=== PATIENT | male | born 1965 | race American Indian/Alaskan Native ===

== ENCOUNTER 2017-01-21 13:28 | Emergency (ER) | payer SELFPAY ==
[2017-01-21 14:25] LABS: Bilirubin,Urine NEG (Negative); Blood,Urine NEG (Negative); Ketones,Urine NEG (Negative); Leukocyte Esterase,Urine NEG (Negative); Nitrite,Urine NEG (Negative); Protein,Urine <15 mg/dL mg/dL (Negative); Urobilinogen,Urine < 2.0 mg/dL (<2.0)
[2017-01-21] MEDS ORDERED: DECADRON IM ONE (14:33)
--- NOTE | 2017-01-21 14:33 | Emergency Department Report ---
ED Back Pain/Injury HPI - General Chief Complaint: Back Pain/Injury Stated Complaint: HIP AND BACK PAIN Time Seen by Provider: 01/21/17 13:55 Source: patient Mode of arrival: Ambulatory Limitations: No Limitations - History of Present Illness MD Complaint: back pain -: Gradual Similar Symptoms Previously: Yes (a/c bp) Place: home Radiation: buttocks, right leg Severity: mild Quality: aching Consistency: intermittent (intermittent in am) Improves With: none Worsens With: movement Context: other (no new injury. no dysuria) Associated Symptoms: denies other symptoms - Related Data Previous Rx's Medication Instructions Recorded Last Taken Type Cyclobenzaprine [Flexeril] 10 mg PO TID PRN #10 tablet 01/21/17 Unknown Rx methylPREDNISolone [Medrol] 4 mg PO DAILY #1 tab.ds.pk 01/21/17 Unknown Rx Allergies Allergy/AdvReac Type Severity Reaction Status Date / Time No Known Allergies Allergy Verified 01/21/17 13:33 ED Review of Systems ROS: Stated complaint: HIP AND BACK PAIN Other details as noted in HPI Comment: All other systems reviewed and negative Constitutional: no symptoms reported, see HPI. denies: chills Eyes: as per HPI. denies: eye pain ENT: as per HPI. denies: ear pain, throat pain Respiratory: no symptoms reported, see HPI. denies: cough, orthopnea Cardiovascular: as per HPI. denies: chest pain, palpitations, dyspnea on exertion, orthopnea, edema, syncope, paroxysmal nocturnal dyspnea Endocrine: no symptoms reported, see HPI. denies: excessive sweating, flushing , intolerance to cold, intolerance to heat Gastrointestinal: as per HPI. denies: abdominal pain, nausea, vomiting, diarrhea, constipation, hematemesis, melena Genitourinary: as per HPI. denies: urgency, dysuria, frequency, hematuria, discharge, testicular pain, testicular mass Musculoskeletal: as per HPI, back pain (points to hip and high buttock). denies : joint swelling, arthralgia, myalgia Skin: as per HPI. denies: rash, lesions Neurological: as per HPI. denies: headache, weakness, numbness, paresthesias, confusion Psychiatric: as per HPI. denies: anxiety, depression Hematological/Lymphatic: as per HPI. denies: easy bleeding ED Past Medical Hx - Past Medical History Additional medical history: SICKLE CELL TRAIT - Surgical History Past Surgical History?: No - Family History Family history: no significant - Social History Smoking Status: Current Every Day Smoker Substance Use Type: Alcohol - Medications Home Medications: Home Medications Medication Instructions Recorded Confirmed Last Taken Type Cyclobenzaprine [Flexeril] 10 mg PO TID PRN #10 tablet 01/21/17 Unknown Rx methylPREDNISolone [Medrol] 4 mg PO DAILY #1 tab.ds.pk 01/21/17 Unknown Rx ED Physical Exam - General Limitations: No Limitations General appearance: alert, in no apparent distress - Head Head exam: Present: atraumatic - Eye Eye exam: Present: PERRL - ENT ENT exam: Present: mucous membranes moist - Neck Neck exam: Present: normal inspection. Absent: tenderness, meningismus - Respiratory Respiratory exam: Present: normal lung sounds bilaterally. Absent: respiratory distress, wheezes, rales, rhonchi - Cardiovascular Cardiovascular Exam: Present: regular rate, normal rhythm - GI/Abdominal GI/Abdominal exam: Present: soft, normal bowel sounds. Absent: distended, tenderness, guarding, rebound, rigid, diminished bowel sounds, hyperactive bowel sounds, hypoactive bowel sounds, organomegaly, mass, bruit, pulsatile mass , hernia (none) - Rectal Rectal exam: Present: deferred - Extremities Exam Extremities exam: Present: normal inspection, normal capillary refill. Absent: full ROM (pain w r straight leg lift), pedal edema, joint swelling, calf tenderness - Back Exam Back exam: Present: normal inspection, full ROM. Absent: tenderness, CVA tenderness (R), CVA tenderness (L), muscle spasm, paraspinal tenderness, vertebral tenderness, rash noted - Expanded Back Exam Expanded Back exam: Absent: saddle anesthesia Back exam: Positive Straight Leg Raise: Right, Negative Straight Leg Raising: Left 1 - pain starts high r buttocks area and rad to thigh anterior. no testicular pain. no inguinal hernia. no dysuria. no cva tenderness. no step off or point tenderness. no fever. no parasthesis or s/s cauda equina. no recent injury - Neurological Exam Neurological exam: Present: alert, oriented X3, CN II-XII intact, normal gait, reflexes normal ED Course Vital Signs 01/21/17 13:35 Temperature 98.0 F Pulse Rate 97 H Respiratory 17 Rate Blood Pressure 128/86 O2 Sat by Pulse 100 Oximetry - Reevaluation(s) Reevaluation #1: 01/21/17 14:38 to er w r side hip-thigh pain. see note no new trauma has had before on l and got a shot that made it better. vss nad no dysuria or hematuria no fever no s/s cauda equina no saddle parasthesis post r straight leg raise Critical care attestation.: If time is entered above; I have spent that time in minutes in the direct care of this critically ill patient, excluding procedure time. ED Disposition Clinical Impression: Back pain, Sciatica Disposition: DC-01 TO HOME OR SELFCARE Is pt being admited?: No Does the pt Need Aspirin: No Condition: Stable Instructions: Sciatica (ED), Low Back Strain (ED), Chronic Back Pain (ED), Back Pain (ED) Additional Instructions: rest warm compresses meds as ordered today follow up ortho if it persists Referrals: PRIMARY CARE, [Primary Care Provider] - 3-5 Days LAURIE BAPTISTE MD [Staff Physician] - 3-5 Days Time of Disposition: 14:35
[2017-01-21 18:47] VITALS: BP 120/78
== END 2017-01-21 14:59 | disposition home or self-care (01) ==
LOC: ED 13:28
DX: M54.30 Sciatica, unspecified side (principal); F17.200 Nicotine dependence, unspecified, uncomplicated
CPT/HCPCS: 81001; 96372; 99283; J1100

== ENCOUNTER 2017-12-27 10:45 | Emergency (ER) | payer SELFPAY ==
[2017-12-27] MEDS ORDERED: TORADOL IM ONE (11:22)
--- NOTE | 2017-12-27 11:26 | Emergency Department Report ---
Chief Complaint: Extremity Injury, Lower Stated Complaint: (R) HIP POSS OUT OF PLACE Time Seen by Provider: 12/27/17 11:13 - HPI History of Present Illness: 52 yo AA M presents with the complaint of right hip pain with radiation towards the groin. This happens "every blue kapadia, like about every 6 months." He rides a bike daily and does heavy lifting at work. No problems with bowel or bladder, numbness or paresthesias. He has tried NSAIDs without relief. No PCP or orthopedist. He also complains of a chronic lump on the back, that looks like a lipoma, that he says does not bother him and is unchanged. - ROS Review of Systems: positive for right hip pain Negative for dysuria, numbness or paresthesias - Exam Vital Signs: Vital Signs 12/27/17 10:52 Temperature 98.2 F Pulse Rate 92 H Blood Pressure 124/77 O2 Sat by Pulse 99 Oximetry Physical Exam: Patient is able to get up from a chair and ambulate without instability. There is some TTP to the right hip. Heart and lung sounds normal to ausculation. MSE screening note: Focused history and physical exam performed. Due to findings the following was ordered: He will have a right hip X-ray and a shot of toradol to start. ED Disposition for MSE Condition: Stable Referrals: PRIMARY CARE, [Primary Care Provider] - 3-5 Days
--- NOTE | 2017-12-27 11:56 | XRay Report ---
RIGHT HIP, 2 views: History: Right hip pain. The superior right femoral head appears slightly sclerotic suggesting osteonecrosis. This is probably a chronic finding. There is no evidence for acute fracture or malalignment. The joint spaces within normal limits otherwise. IMPRESSION: Findings suggestive of osteonecrosis of the right femoral head. No evidence for femoral head collapse. This is probably a chronic finding. If further evaluation is needed right hip MRI with contrast would provide the most information.
--- NOTE | 2017-12-27 13:46 | Emergency Department Report ---
ED Lower Extremity HPI - General Chief Complaint: Extremity Injury, Lower Stated Complaint: (R) HIP POSS OUT OF PLACE Time Seen by Provider: 12/27/17 11:13 Source: patient Mode of arrival: Ambulatory Limitations: No Limitations - History of Present Illness Initial Comments: 52-year-old male past medical history sickle cell trait presents with complaint of acute on chronic right hip pain. Patient states that this occasionally flares up intermittently every few weeks to months and causes severe right hip pain. Patient denies fevers or chills is awake alert and oriented 3 and is ambulatory but has antalgic gait secondary to right hip pain. MD Complaint: hip injury Onset/Timin -: year(s) Injury: Hip: Right Place: home, work, street/outdoors Severity: moderate Severity scale (0 -10): 7 Worsens With: weight bearing, movement Associated Symptoms: ambulatory - Related Data Previous Rx's Medication Instructions Recorded Last Taken Type Cyclobenzaprine [Flexeril] 10 mg PO TID PRN #10 tablet 01/21/17 Unknown Rx methylPREDNISolone [Medrol] 4 mg PO DAILY #1 tab.ds.pk 01/21/17 Unknown Rx traMADol [Ultram] 50 mg PO Q6HR PRN #10 tablet 01/21/17 Unknown Rx Acetaminophen/Codeine [Tylenol 1 tab PO Q6H PRN #12 tab 12/27/17 Unknown Rx /Codeine # 3 tab] Ibuprofen [Motrin] 800 mg PO Q8HR PRN #30 tablet 12/27/17 Unknown Rx Allergies Allergy/AdvReac Type Severity Reaction Status Date / Time No Known Allergies Allergy Verified 01/21/17 13:33 ED Review of Systems ROS: Stated complaint: (R) HIP POSS OUT OF PLACE Other details as noted in HPI Constitutional: denies: chills, fever Eyes: denies: eye pain, eye discharge, vision change ENT: denies: ear pain, throat pain Respiratory: denies: cough, shortness of breath, wheezing Cardiovascular: denies: chest pain, palpitations Endocrine: no symptoms reported Gastrointestinal: denies: abdominal pain, nausea, diarrhea Genitourinary: denies: urgency, dysuria Musculoskeletal: as per HPI (acute on chronic right hip pain). denies: back pain, joint swelling, arthralgia Skin: denies: rash, lesions Neurological: denies: headache, weakness, paresthesias Psychiatric: denies: anxiety, depression Hematological/Lymphatic: denies: easy bleeding, easy bruising ED Past Medical Hx - Past Medical History Previous Medical History?: Yes Additional medical history: SICKLE CELL TRAIT - Surgical History Past Surgical History?: No - Social History Smoking Status: Current Every Day Smoker Substance Use Type: None - Medications Home Medications: Home Medications Medication Instructions Recorded Confirmed Last Taken Type Cyclobenzaprine [Flexeril] 10 mg PO TID PRN #10 tablet 01/21/17 Unknown Rx methylPREDNISolone [Medrol] 4 mg PO DAILY #1 tab.ds.pk 01/21/17 Unknown Rx traMADol [Ultram] 50 mg PO Q6HR PRN #10 tablet 01/21/17 Unknown Rx Acetaminophen/Codeine [Tylenol 1 tab PO Q6H PRN #12 tab 12/27/17 Unknown Rx /Codeine # 3 tab] Ibuprofen [Motrin] 800 mg PO Q8HR PRN #30 tablet 12/27/17 Unknown Rx ED Physical Exam - General Limitations: No Limitations General appearance: alert, in no apparent distress - Head Head exam: Present: atraumatic, normocephalic - Eye Eye exam: Present: normal appearance - ENT ENT exam: Present: mucous membranes moist - Neck Neck exam: Present: normal inspection - Respiratory Respiratory exam: Present: normal lung sounds bilaterally. Absent: respiratory distress - Cardiovascular Cardiovascular Exam: Present: regular rate, normal rhythm. Absent: systolic murmur, diastolic murmur, rubs, gallop - GI/Abdominal GI/Abdominal exam: Present: soft, normal bowel sounds - Rectal Rectal exam: Present: deferred - Extremities Exam Extremities exam: Present: normal inspection - Expanded Lower Extremity Exam Right Hip exam: Present: normal inspection, full ROM Upper Leg exam: Present: normal inspection, full ROM Knee exam: Present: normal inspection, full ROM Lower Leg exam: Present: normal inspection, full ROM Ankle exam: Present: normal inspection, full ROM - Back Exam Back exam: Present: normal inspection - Neurological Exam Neurological exam: Present: alert, oriented X3 - Psychiatric Psychiatric exam: Present: normal affect, normal mood - Skin Skin exam: Present: warm, dry, intact, normal color. Absent: rash ED Course Vital Signs 12/27/17 12/27/17 10:52 11:31 Temperature 98.2 F Pulse Rate 92 H Respiratory 16 Rate Blood Pressure 124/77 O2 Sat by Pulse 99 Oximetry ED Lower Extremity MDM - Medical Decision Making A/P: Acute on chronic right hip pain, osteonecrosis of the right hip 1ptdiscussed with Dr. Duarte changes appear to be degenerative and chronic, patient to follow-up in office as an outpatient for outpatient MRI and further management 2-pt provided with a walker for walking assistance 3-Motrin 800 when necessary, short course Tylenol 3 Critical care attestation.: If time is entered above; I have spent that time in minutes in the direct care of this critically ill patient, excluding procedure time. ED Disposition Clinical Impression: Chronic right hip pain, Osteonecrosis of right hip Disposition: TO HOME OR SELFCARE Is pt being admited?: No Does the pt Need Aspirin: No Condition: Stable Instructions: Arthralgia (ED), Osteoarthritis (ED) Prescriptions: Acetaminophen/Codeine [Tylenol /Codeine # 3 tab] 1 tab PO Q6H PRN #12 tab PRN Reason: Pain , Severe (7-10) Ibuprofen [Motrin] 800 mg PO Q8HR PRN #30 tablet PRN Reason: Pain , Severe (7-10) Referrals: PATRICIO DUARTE MD [Staff Physician] - 3-5 Days [facility] [Provider Group] - 3-5 Days Forms: Work/School Release Form(ED) Time of Disposition: 13:45
[2017-12-27] MEDS ORDERED: NORCO 5/325 PO ONE (13:47)
[2017-12-27 14:14] VITALS: BP 121/74
== END 2017-12-27 14:12 | disposition home or self-care (01) ==
LOC: ED 10:45
DX: M87.050 Idiopathic aseptic necrosis of pelvis (principal); F17.200 Nicotine dependence, unspecified, uncomplicated; D57.3 Sickle-cell trait
CPT/HCPCS: 73502; 96372; 99283; J1885